=== PATIENT | female | born 1955 | race Caucasian/White ===

== ENCOUNTER → 2020-04-26 | Outpatient (CLI) | payer OTHER, SELFPAY ==
--- NOTE | ~2020-04-26 | MR_ITS ---
EXAMINATION: MR lumbar spine wo con EXAM DATE: 04/26/2020 13:43 INDICATION: Low back pain, lumbar radiculopathy. TECHNIQUE: Multi-sequential, multiplanar MR images of the lumbar spine were obtained without contrast . Sagittal T1, T2, T2 fat saturation images. Axial T2 weighted images. There is no prior study for comparison. FINDINGS: There is moderate to severe loss of the L4-5 disc height, with only mild endplate degenerat juanjo signal change. Mild disc disease L3-4 and L5-S1. The conus medullaris terminates at the T12-L1 le rosario and has normal signal intensity and morphology. There are no suspicious marrow signal abnormalit ies. The vertebral bodies are aligned in the AP dimension. Paraspinal soft tissue is unremarkable. Level by level evaluation: T12-L1: Disc does not extend beyond the endplate margin. Facet arthropathy: None. Neural foraminal stenosis: No stenosis. Central canal stenosis: No stenosis. L1-L2: Disc does not extend beyond the endplate margin. Facet arthropathy: None. Neural foraminal stenosis: No stenosis. Central canal stenosis: No stenosis. L2-L3: Disc does not extend beyond the endplate margin. Facet arthropathy: Mild. Neural foraminal stenosis: No stenosis. Central canal stenosis: No stenosis. L3-L4: There is a mild diffuse disc bulge. Facet arthropathy: Mild. Neural foraminal stenosis: Mild left. Central canal stenosis: No stenosis. L4-L5: There is a mild to moderate diffuse disc bulge. Facet arthropathy: Mild. Neural foraminal stenosis: Mild to moderate right, mild left. Central canal stenosis: Mild. L5-S1: There is a mild diffuse disc bulge asymmetric to the left Facet arthropathy: Mild. Neural foraminal stenosis: Mild to moderate left. Central canal stenosis: No stenosis. IMPRESSION: 1. L4-5 moderate to severe loss of disc height. 2. Generous sized central canal and neural foramen with only mild to moderate stenosis at lower lumb ar levels as above. Reviewed, dictated and finalized at location B. IFIED CAREGIVER IMPRESSION: 1. L4-5 moderate to severe loss of disc height. 2. Generous sized central canal and neural foramen with only mild to moderate stenosis at lower lumbar levels as above.
== END | disposition home or self-care (01) ==
PROVIDERS: PCP Internal Medicine; Visit Provider Nurse Practitioner Family
DX: M47.27 Other spondylosis with radiculopathy, lumbosacral region (principal); M48.07 Spinal stenosis, lumbosacral region
CPT/HCPCS: 72148

== ENCOUNTER → 2020-05-09 13:03 | Outpatient (CLI) | payer OTHER, SELFPAY ==
--- NOTE | ~2020-05-09 | US_ITS ---
EXAMINATION: US thyroid EXAM DATE: 05/09/2020 13:24 INDICATION: Goiter. TECHNIQUE: Multiple grayscale and Doppler images of the thyroid were obtained (by a technologist who performed the scan) and subsequently reviewed. Individual nodules and recommendations may be reporte d in accordance with TI-RADS system as designated by the 2017 ACR White Paper TI-RADS committee. The re is no prior study for comparison. FINDINGS: The right thyroid lobe measures 5.0 x 1.5 x 1.6 cm, the left measuring 4.7 x 2.2 x 2.1 cm. There is h omogeneous thyroid echogenicity. There is a left thyroid lobe nodule measuring 2.8 x 1.5 x 1.9 cm, solid (2 points), hypoechoic (2 poi nts), wider than tall, smooth well defined margin, without echogenic foci, category TR4 for this nodu le. This is large enough to recommend ultrasound-guided biopsy. IMPRESSION: 1. Left thyroid lobe nodule large enough to recommend ultrasound-guided biopsy. Reviewed, dictated and finalized at location B. YER MACHINE IMPRESSION: 1. Left thyroid lobe nodule large enough to recommend ultrasound-guided biopsy .
== END ==
PROVIDERS: PCP Internal Medicine; Visit Provider Internal Medicine
DX: E04.1 Nontoxic single thyroid nodule (principal)
CPT/HCPCS: 76536

== ENCOUNTER → 2020-06-04 01:55 | Outpatient (CLI) | payer OTHER, SELFPAY ==
[2020-06-04 19:34] LABS: SARS-CoV-2 RNA PCR Negative
== END ==
PROVIDERS: PCP Internal Medicine; Visit Provider Internal Medicine Gastroenterology
DX: Z01.812 Encounter for preprocedural laboratory examination (principal); Z20.822 Contact with and (suspected) exposure to COVID-19
CPT/HCPCS: C9803; U0003; U0005

== ENCOUNTER 2020-06-07 01:23 | Day surgery (SDC) | payer OTHER, SELFPAY ==
[2020-05-24 14:09] VITALS: BMI 43.2
[2020-06-07 08:08] VITALS: BP 150/91; PULSE 81; RESP 18; TEMP 36.9; O2SAT 99; BMI 41.8
--- NOTE | 2020-06-07 08:32 | PM.HPGS ---
History of Present Illness History of Present Illness Consent: Risks, benefits, and alternatives have been discussed and questions answered. Patient agrees to proceed with procedure. Chief complaint: iron deficiency anemia Narrative: Katie Gonzales is a 65 year old female who has been found to be anemic with iron deficiency. She does not see blood in her stools. She had been on diclofenac and she has been having discomfort in her upper abdomen for a couple of months. Her last colonoscopy 3 years ago was normal Review of Systems Review of Systems: All systems reviewed & are unremarkable except as noted in HPI and below PMFSH Past Medical History Medical History Anxiety Arthritis Arthritis of knee, left HTN (hypertension) Left foot pain Metatarsalgia of left foot Vision abnormalities Family History Family History Unknown Heart disease Diabetes mellitus Hypertension Arthritis Social History Social History Years smoked: 38 Smoking status: Former smoker Tobacco type: cigarettes Additional smoking assessment comments: QUIT SMOKING 38 YRS AGO. Alcohol intake: current Drinks per week: 2 Substance use: current Substance use type: marijuana Other substance usage details: OCCASSION MARIJUAN USE. Living arrangements: with family Gender identity (if verbalized by the patient): Female Sexual Orientation (if Verbalized by the Patient): Straight or Heterosexual Spiritual care concerns: No Meds Home Medications and Allergies Home Medications Medication Instructions Recorded Confirmed Type alprazolam 0.5 mg tablet 0.5 mg PO .PRN tablet 04/15/19 05/24/20 History cholecalciferol (vitamin D3) 75 3,000 unit PO DAILY 04/15/19 05/24/20 History mcg (3,000 unit) tablet spironolactone 50 mg tablet 50 mg PO DAILY 04/15/19 05/24/20 History Acetaminophen Extra Strength 1,000 mg PO Q4-6H PRN 05/24/20 05/24/20 History ferrous sulfate 325 mg PO TID 05/24/20 05/24/20 History Allergies Allergy/AdvReac Type Severity Reaction Status Date / Time Sulfa (Sulfonamide AdvReac Unknown Unknown Verified 06/07/20 08:06 Antibiotics) Vital Signs Vital Signs - 24 hr 06/07/20 08:08 Temperature 36.9 C Pulse Rate 81 Respiratory Rate 18 Blood Pressure 150/91 H Pulse Oximetry 99 Exam Const: General: alert Orientation/consciousness: patient oriented x3 Resp: Auscultation: clear to auscultation bilaterally Cardio: Rhythm: regular rhythm GI: GI Palp: Yes Soft to palpation and No Tenderness to palpation present (GI) Neuro: General: patient oriented x3 Assessment and Plan Assessment and plan (1) Iron deficiency anemia: Code(s): D50.9 - Iron deficiency anemia, unspecified Status: Acute Assessment and Plan: EGD with possible biopsy or dilatation or cautery.Colonoscopy with possible biopsy or polypectomy or cautery or injection of substances.
--- NOTE | 2020-06-07 08:33 | WPDANESEPPF ---
Anes - Initial Pre Proc Eval Procedure: Operation Date: 06/07/20 09:30 Proposed Procedures p Esophagogastroduodenoscopy & Colonoscopy - Stevie Blevins MD Date/Time: 06/07/20 08:33 Surgeon: Stevie Blevins MD Pre Op Diagnosis: iron deficiency anemia Patient Data Age: 65 Gender: F Height: 5 ft 6 in Weight: 117.4 kg Last Vital Signs Temp 98.4 F 06/07/20 08:08 Pulse 81 06/07/20 08:08 Resp 18 06/07/20 08:08 BP 150/91 H 06/07/20 08:08 Pulse Ox 99 06/07/20 08:08 Allergies Allergy/AdvReac Type Severity Reaction Status Date / Time Sulfa (Sulfonamide AdvReac Unknown Unknown Verified 06/07/20 08:06 Antibiotics) Home Medications Medication Instructions Recorded Confirmed Type alprazolam 0.5 mg tablet 0.5 mg PO .PRN tablet 04/15/19 05/24/20 History cholecalciferol (vitamin D3) 75 3,000 unit PO DAILY 04/15/19 05/24/20 History mcg (3,000 unit) tablet spironolactone 50 mg tablet 50 mg PO DAILY 04/15/19 05/24/20 History Acetaminophen Extra Strength 1,000 mg PO Q4-6H PRN 05/24/20 05/24/20 History ferrous sulfate 325 mg PO TID 05/24/20 05/24/20 History Patient hx anesthesia problems: none Family hx anesthesia problems: none PMFSH Past Medical History Medical History Anxiety Arthritis Arthritis of knee, left HTN (hypertension) Left foot pain Metatarsalgia of left foot Vision abnormalities Family History Family History Unknown Heart disease Diabetes mellitus Hypertension Arthritis Social History Social History Years smoked: 38 Smoking status: Former smoker Tobacco type: cigarettes Additional smoking assessment comments: QUIT SMOKING 38 YRS AGO. Alcohol intake: current Drinks per week: 2 Substance use: current Substance use type: marijuana Other substance usage details: OCCASSION MARIJUAN USE. Living arrangements: with family Gender identity (if verbalized by the patient): Female Sexual Orientation (if Verbalized by the Patient): Straight or Heterosexual Spiritual care concerns: No Anes - Eval Final PreProcedure Day of Procedure 06/07/20 08:33 Patient weight: morbidly obese Heart: regular rate and rhythm Lungs: clear to auscultation Airway: Mallampati scale class III Neurological: alert and oriented Last oral intake: >/= 8 hours ASA classification: III Emergent: no Anesthetic plan: proceed Anesthesia type and monitoring: general GIVS and standard monitoring Informed Consent: The patient's anesthetic plan and its attendant risks and benefits were discussed with the patient/family/POA. Questions were solicited and answers provided to the satisfaction of the patient/family/POA.
[2020-06-07] MEDS: LACTATED RINGERS 1,000 ML 150 ML IV CONT (08:43)
[2020-06-07] MEDS: SIMETHICONE ORAL SUSPENSION 20 MG/0.3 ML 30 ML BOTTLE 0.6 ML IRRIGATION (09:16)
[2020-06-07 09:28] VITALS: BP 156/96; PULSE 62; RESP 18; O2SAT 99
[2020-06-07 09:38] VITALS: BP 182/95; PULSE 62; RESP 18; O2SAT 98
[2020-06-07 09:46] VITALS: BP 176/99; PULSE 54; RESP 18; O2SAT 100
== END 2020-06-07 09:57 | disposition home or self-care (01) ==
PROVIDERS: PCP Internal Medicine; Visit Provider Internal Medicine Gastroenterology
PROC: 0DJ08ZZ Inspection of Upper Intestinal Tract, Via Natural or Artificial Opening Endoscopic (ICD-10-PCS; CPT 43235; principal; 2020-06-07 09:30)
DX: D50.9 Iron deficiency anemia, unspecified (principal); K64.8 Other hemorrhoids; K57.30 Diverticulosis of large intestine without perforation or abscess without bleeding; K21.00 Gastro-esophageal reflux disease with esophagitis, without bleeding; K44.9 Diaphragmatic hernia without obstruction or gangrene; I10 Essential (primary) hypertension; F41.9 Anxiety disorder, unspecified; Z87.891 Personal history of nicotine dependence; E66.01 Morbid (severe) obesity due to excess calories; Z68.41 Body mass index [BMI] 40.0-44.9, adult
CPT/HCPCS: 45378; 43239; 87081; 88305; C9803; J2001; J2704; J7120; U0003; U0005

== ENCOUNTER → 2023-01-21 09:37 | Outpatient (CLI) | payer MEDICARE, SELFPAY ==
--- NOTE | ~2023-01-21 | MR_ITS ---
EXAMINATION: MR knee RT wo con DATE: 01/21/2023 10:28 INDICATION: Right knee pain TECHNIQUE: Magnetic resonance imaging (MRI) of the right knee was performed without intravenous contr ast. Sequences included coronal PD-weighted FSE, coronal PD-weighted FS FSE, sagittal T2-weighted FS E, sagittal PD-weighted FS FSE and axial PD weighted fat saturated FSE. COMPARISON: None. FINDINGS: Medial compartment: There is medial extrusion of the medial meniscal body without discrete meniscal tear. There is extens juanjo full and near full-thickness cartilage loss along the anterior, central and portions of the poste rior weightbearing medial femoral condyle and along the anterior two thirds of the medial tibial plat eau. Is a small amount of scattered mild subarticular edema-like signal change. Lateral compartment: Lateral meniscus is normal. There is mild partial-thickness cartilage loss along the medial side of t he lateral tibial plateau along the shoulder the intercondylar eminence. There is a tiny focus of und erlying subarticular edema-like signal change. Remaining cartilage in the lateral compartment appears relatively preserved. Patellofemoral compartment: Regions of full/near full-thickness cartilage loss with mild underlying cortical irregularity at the medial patellar facet and cephalad aspect of the apical ridge. Less severe partial thickness cartilag e loss with deep fissuring and a few small foci of mild underlying subarticular edema-like signal stacey nge at the lateral patellar facet. Chondral ulceration at the trochlea most severe at the trochlear g roove where it approaches full-thickness with mild underlying cortical irregularity. Ligaments and tendons: Complete tear of the anterior cruciate ligament. There is prominent thickening and increased signal o f the posterior cruciate ligament consistent with at least partial tear. The medial collateral ligame nt and fibular collateral ligament complex are normal. The extensor mechanism is normal. The visualiz ed medial and lateral hamstring tendons as well as the iliotibial band are normal. Fluid: Minimal right knee joint effusion with associated synovitis at the suprapatellar pouch and along the posterior margin of Hoffa's fat pad. No loose osteochondral bodies identified. Osseous/other: Bone alignment is normal. No fracture or pathologic marrow replacing process. Marrow edema at the ant erior tibia underlying the footplate of the anterior cruciate ligament. Intraosseous ganglion cyst at the intercondylar notch underlying the femoral footplate of the posterior cruciate ligament. IMPRESSION: 1. Complete tear of the anterior cruciate ligament and at least partial tear of the posterior cruciat e ligament. Correlate with physical exam to assess for degree of residual functional integrity of the posterior cruciate ligament. 2. Medial extrusion of the medial meniscal body without discrete tear. 3. Tricompartmental osteoarthritis, severe with extensive high-grade chondral malacia in the medial c ompartment, moderate severity with additional extensive high-grade chondral malacia in the patellofem oral compartment and mild with small focus of high-grade chondromalacia at the lateral compartment. 4. Increased fluid signal at the superficial suprapatellar fat pad which can be seen with fat pad imp ingement syndrome. Reviewed, dictated and finalized at location A. WARE SYSTEMS ENGINEER IMPRESSION: 1. Complete tear of the anterior cruciate ligament and at least partial tear of the posterior cruciate ligament. Correlate with physical exam to assess for de gree of residual functional integrity of the posterior cruciate ligament. 2. Medial extrusion of the medial meniscal body without discrete tear. 3. Tricompartmental osteoarthritis, severe with extensive high-grade ch
--- NOTE | ~2023-01-21 | MR_ITS ---
EXAMINATION: MR knee LT wo con DATE: 01/21/2023 10:24 INDICATION: Left knee pain TECHNIQUE: Magnetic resonance imaging (MRI) of the left knee was performed without intravenous contra st. Sequences included coronal PD-weighted FSE, coronal PD-weighted FS FSE, sagittal T2-weighted FSE , sagittal PD-weighted FS FSE and axial PD weighted fat saturated FSE. COMPARISON: None. FINDINGS: Medial compartment: There is a longitudinal horizontal tear extending knee anterior to the posterior aspect of the body o f the medial meniscus. There appears to be likely secondary tear plane extending obliquely to the inf erior articular surface at the central aspect of the medial meniscal body. There is partial thickness cartilage loss which is full/near full-thickness with subarticular low signal intensity eburnation a t the central aspect of the medial tibial plateau and at the central weightbearing medial femoral con dyle. Less severe partial thickness cartilage loss along the remainder of the medial tibial plateau a nd more anterior and posterior weightbearing medial femoral condyle. Lateral compartment: Lateral meniscus is normal. Cartilage thickness appears relatively preserved in the lateral compartme nt with deep chondral fissure without degenerative subchondral changes at the anterior to central dimitri ghtbearing lateral femoral condyle. Patellofemoral compartment: Deep chondral ulceration and fissuring at the medial patellar facet, apical ridge and medial side of the lateral patellar facet. Tiny focus of underlying reticular cystlike change at the cephalad aspect of the apical ridge. Additional deep chondral ulceration involving a large portion of the lateral tr ochlea. Deep chondral fissure at the caudal aspect of the trochlear groove. Partial-thickness chondra l ulceration with some chondral surface regularity of the medial trochlea. Ligaments and tendons: Anterior cruciate ligament tear, likely complete. Posterior cruciate ligament is normal.. The medial collateral ligament and fibular collateral ligament complex are normal. Mild distal quadriceps tendin opathy. Patellar tendon is normal. The visualized medial and lateral hamstring tendons as well as the iliotibial band are normal. Fluid: Physiologic amount of fluid in the joint space. There is mild synovitis at the suprapatellar pouch an d along the posterior margin of Hoffa's fat pad. No loose osteochondral bodies identified. Osseous/other: Bone alignment is normal. No fracture or pathologic marrow replacing process. There is increased flui d signal at the superficial suprapatellar fat pad which can be seen with fat pad impingement syndrome . IMPRESSION: 1. Medial meniscal tear, potentially complex with longitudinal horizontal tear plane extending to the cephalad articular surface of the meniscal body and suspected tear plane extending to contact the in ferior articular surface at the central aspect of the body. 2. Moderate osteoarthritis with extensive high-grade chondral malacia the medial and patellofemoral c ompartments and mild osteoarthritis with small region of moderate grade chondromalacia in the lateral compartment. 3. Anterior cruciate ligament tear, likely complete. 4. Edema in the superficial suprapatellar fat pad which can be seen with fat pad impingement syndrome . Reviewed, dictated and finalized at location A. ING MACHINE OPERATOR HELPER IMPRESSION: 1. Medial meniscal tear, potentially complex with longitudinal horizontal tear plane extending to the cephalad articular surface of the meniscal body and susp ected tear plane extending to contact the inferior articular surface at the paulie tral aspect of the body. 2. Moderate osteoarthritis with extensive high-grade chondral malacia the media l and patellofemoral compartments and mild osteoarthritis wi
== END ==
DX: S83.511A Sprain of anterior cruciate ligament of right knee, initial encounter (principal); S83.521A Sprain of posterior cruciate ligament of right knee, initial encounter; M17.0 Bilateral primary osteoarthritis of knee; M94.261 Chondromalacia, right knee; S83.232A Complex tear of medial meniscus, current injury, left knee, initial encounter; M94.262 Chondromalacia, left knee; S83.512A Sprain of anterior cruciate ligament of left knee, initial encounter; M79.89 Other specified soft tissue disorders
CPT/HCPCS: 73721

== ENCOUNTER 2025-02-19 11:10 | Outpatient (CLI) | payer MEDICARE, OTHER, SELFPAY ==
--- NOTE | ~2025-02-19 | US_ITS ---
EXAMINATION: US thyroid DATE: 02/19/2025 11:38 INDICATION: Nodule TECHNIQUE: Multiple ultrasound images of the thyroid were obtained. COMPARISON: May 09, 2020 FINDINGS: The right thyroid lobe measures 4.8 x 1.4 x 1.6 cm. The left thyroid lobe measures 4.8 x 2.2 x 2.1 cm. A 3 x 2 x 2 mm hypoechoic nodule TR 3. Within the left lobe is a 2.9 x 1.6 x 2.2 center complex appearing TR 4 nodule which measured 2.8 x 1.5 x 1.9 cm on the previous exam. Overall appearance is similar. Additionally, There is normal echotexture and echogenicity throughout the thyroid gland. No discrete nodules identified. Normal vascular flow is present. IMPRESSION: 1. Stable to slight increase growth of complex TR 4 left sided thyroid nodule. Correlate with previous histology and/or tissue sampling with FNA. 2. 3 mm TR 3 nodule in the right lobe too small to reliably sample. Para 3. Recommend follow-up thyroid ultrasound in 12 months. Reviewed, dictated and finalized at location A. ERVATION OF RESOURCES COMMISSIONER IMPRESSION: 1. Stable to slight increase growth of complex TR 4 left sided thyroid nodule. Correlate with previous histology and/or tissue sampling with FNA. 2. 3 mm TR 3 nodule in the right lobe too small to reliably sample. Para 3. Rec ommend follow-up thyroid ultrasound in 12 months.
== END 2025-02-19 11:11 | disposition home or self-care (01) ==
DX: E04.2 Nontoxic multinodular goiter (principal)
CPT/HCPCS: 76536